=== PATIENT | male | born 1995 | race Caucasian/White ===

== ENCOUNTER → 2024-12-27 | Outpatient (CLI) | payer BC ==
[~2024-12-27] MED LIST: AMOXIL500 MG PO; CLARITIN10 MG PO; KEFLEX500 MG PO; NKHM; ZITHROMAX Z PA250 MG PO
== END | disposition home or self-care (01) ==
LOC: US 12-21 08:00
PROVIDERS: ATTEND Family Medicine
DX: K76.0 Fatty (change of) liver, not elsewhere classified (principal); R16.0 Hepatomegaly, not elsewhere classified; R79.89 Other specified abnormal findings of blood chemistry; Z90.49 Acquired absence of other specified parts of digestive tract